=== PATIENT | female | born 2000 | race Caucasian/White ===

== ENCOUNTER 2020-07-02 02:43 | Inpatient (IN) | payer OTHER ==
--- NOTE | 2020-07-02 04:25 | PCM.SN.2 ---
- Free Text/Narrative Note: Evaluation Note OB provider: asset protection officer/marlyn Bronson HPI: Ines Cardona is a 19-year-old at 42 weeks 4 days by certain LMP of 09/08/2019 consistent with a 42-week ultrasound that was done on 06/29/2020 who presents complaining of possible labor. She reports that she has been having intermittent contractions throughout the day on 07/01/2020 with an increased number of contractions in the afternoon. She reports that the contractions were about every 10 minutes starting at around 4 PM with the contractions lasting for about 2 to 3 minutes. She reports that she has been having some bloody show but denies any leaking of fluid. She has been having good movement. She feels that with the bloody show she is in active labor. She has not had any cervical examinations to determine cervical dilation. Her care with her blasting clay miner has been uncomplicated per her report. No formal testing has been done during this . Patient did have labs drawn when she was seen on labor and delivery on 06/29/2020 with all of her labs at that time within normal limits. Her care has been with Lexii Bronson, blasting clay miner/marlyn, and is [complicated by:] * Postterm with estimated gestational age of 42 weeks 4 days by LMP * Limited care with no visits in a medical clinic or evaluations throughout the by a regular medical professional. Patient has had care with her blasting clay miner/marlyn Vitals: [] Physical Examination: General: [No acute distress, alert and oriented] Lungs: [Clear to auscultation bilaterally] Heart: [Regular rate and rhythm] Abdomen: [Soft, nontender, nondistended, gravid], estimated weight 9.5 to 10 pounds by Shravan's [Pelvis:] Declines exam Extremities: 1-2+ pitting edema in bilateral lower extremities to knees, no calf tenderness Cervical exam: Declines exam FHT: 150s, minimal variability, [positive] [15x15] accelerations, intermittent variable decelerations with possible late deceleration after contraction at 03:58 Gravity: Irritability with irregular contractions every 16 to 18 minutes Interventions: monitoring Assessment and Plan: Ines Cardona is a 19-year-old at 42 weeks 4 days with possible labor and post term * Postterm -patient with postterm based on poor dating with LMP of 09/08/2019 consistent with a 42-week ultrasound that was done on 06/29/2020 when she was seen on labor and delivery for evaluation that was performed by Dr. Abdi. Patient had presented at that time for evaluation of blood pressures and increased swelling. There is no evidence of preeclampsia or gestational hypertension at that time. Patient presents today with concern for labor. There has been no cervical examinations performed and she has been having irregular contractions throughout the day. Per her report she has been having contractions about every 10 minutes since around 4 PM on 07/01/2020. She had been having irregular contractions prior to that. She reports that she is having some bloody show. She declined exam by myself on presentation. * Large for gestational age infant -patient had biophysical profile performed at her visit on 06/29/2020 with an estimated weight of 4582 g (10 pounds 2 ounces) which is greater than the 95th percentile for an at the 42nd week of gestation. On Shravan evaluation today the infant was 9.5 to 10 pounds by my evaluation. * Nonreactive NST on monitoring with a category 2 heart rate tracing with variable decelerations and questionable late decelerations as well as minimal variability for the heart rate * Patient was counseled on the risks of postterm including increased risk of maternal complications such as arrest of dilation, arrest of descent, fourth degree laceration with delivery, shoulder dystocia and increased risk for section. Discussed that there is also increased risk of stillbirth at 42 weeks compared to 41 weeks gestational age. There is also increased risk of complications with need for NICU care for the and increased risk for meconium aspiration. Recommend for evaluation of labor with serial cervical exams. Patient declines cervical exams at this time. Recommend for patient to undergo induction of labor and evaluation for labor and she declines at this time. Patient would like to have additional monitoring throughout the morning to see if there is any progression of her labor. I discussed with the patient that there is no way to determine labor without performing serial cervical examinations. Patient states understanding and continues to decline cervical examinations. * We will keep patient for monitoring throughout the morning and would recommend for biophysical profile prior to discharge for evaluation of wellbeing if patient requests discharge and declines being kept in the hospital for delivery of the . I would not recommend patient leave the hospital at this time and would strongly recommend for patient to deliver baby at this time. It would not be my medical recommendation for continuing with the at this time due to the increased morbidity and mortality for both the mother and the including the increased risks for stillbirth and other medical complications for the mother. * We will keep patient from monitoring throughout the morning and her care will be transferred to Dr. Hanks who will be taking over later this morning. Ari Ny MD 4:31 AM 07/02/2020
[2020-07-02] MEDS ORDERED: Lactated Ringers 1,000 ML IV ONE (05:14)
[2020-07-02] MEDS ORDERED: Sodium Chloride 0.9% 10 ML Syringe FLUSH PRN ×2 (05:16→07:23)
--- NOTE | 2020-07-02 06:31 | PCM.PNLD ---
Labor Progress Note - VS & Meds Active Medications: Current Medications Sodium Chloride (Sodium Chloride 0.9% 10 Ml Syringe) 10 ml FLUSH ASDIRECTED PRN PRN Reason: Keep Vein Open Discontinued Medications Lactated Ringer's (Ringers, Lactated) 1,000 mls @ 999 mls/hr IV .BOLUS ONE Stop: 07/02/20 06:14 - Uterine Contractions Uterine Monitoring Mode: External [place] Contraction Frequency (min): irritability. q2-5 Contraction Intensity: Moderate to Strong Uterine Resting Tone: Soft - Monitoring Strip Review: Category II (reassuring currently but) - Vaginal Exam Vaginal Exam Comment: Discussed in detail that I would like at least one cervical check now because the approach to monitoring is influenced by and understanding of proximity to delivery. Patient, support person and voice understanding and refuse exam. - Labor Progress (Free Text) Labor Progress: 19 year old with painful contractions at 42w4. Presumed in labor however has not had a cervical check and on leopolds head does not feel engaged. Had been planning home delivery but now would like hospital delivery however is clear that does not want any interventions. Long conversation about expectations and hospital delivery. Discussed with patient that I will not force her to do anything. Discussed that hospital delivery in and of it self is no guarantee of positive outcomes and that we can only help contribute to positive outcomes if we are allowed to recommend and proceed with the usual interventions based on monitoring and labor progress. Rediscussed all risks documented by both Dr Abdi on 06.29.20 and earlier this morning by Dr. Ny including but not limited to macrosomia leading to labor complications, , shoulder dystocia and maternal hemorrhage. Patient verbalizes understanding. Asked if any questions or clarifications needed and they decline. Discussed at this point I don't believe I would recommend anything different as monitoring is Category 2 but I would recommend cervical check because assessment of labor progress will depend on knowing at least a baseline exam. Patient states she does not want that. Will continue to monitor and make recommendations.
[2020-07-02] MEDS ORDERED: Nalbuphine 10 MG/1 ML Vial IVPUSH PRN (07:23)
--- NOTE | 2020-07-02 14:42 | PCM.PNLD ---
Labor Progress Note - VS & Meds Vital Signs: Last Vital Signs Temp 37.0 C 07/02/20 07:23 Pulse 89 07/02/20 07:23 Resp 16 07/02/20 07:23 BP 121/69 07/02/20 07:23 Pulse Ox 97 07/02/20 07:23 Active Medications: Current Medications Lactated Ringer's (Ringers, Lactated) 1,000 mls @ 100 mls/hr IV ASDIRECTED TERENCE Nalbuphine HCl (Nalbuphine 10 Mg/1 Ml Vial) 10 mg IVPUSH Q2H PRN PRN Reason: Pain Sodium Chloride (Sodium Chloride 0.9% 10 Ml Syringe) 10 ml FLUSH ASDIRECTED PRN PRN Reason: Keep Vein Open Sodium Chloride (Sodium Chloride 0.9% 10 Ml Syringe) 10 ml FLUSH ASDIRECTED PRN PRN Reason: Keep Vein Open Discontinued Medications Lactated Ringer's (Ringers, Lactated) 1,000 mls @ 999 mls/hr IV .BOLUS ONE Stop: 07/02/20 06:14 Last Admin: 07/02/20 10:41 Dose: 999 mls/hr Documented by: - Uterine Contractions Uterine Monitoring Mode: External [place] Contraction Frequency (min): irritability. q2-5 Contraction Intensity: Moderate to Strong Uterine Resting Tone: Soft - Monitoring Strip Review: Category II (good accelerations, decelerations to 60s with strong contractions.) - Vaginal Exam Vaginal Exam Comment: Discussed in detail that I would like at least one cervical check now because the approach to monitoring is influenced by and understanding of proximity to delivery. Patient, support person and voice understanding and refuse exam. Also would like us to stop offering - Labor Progress (Free Text) Labor Progress: Still refusing cervical exams to cannot assess labor progress. Offered examination. Patient and support persons refuse.
--- NOTE | 2020-07-02 14:45 | PCM.PNLD ---
Labor Progress Note - VS & Meds Vital Signs: Last Vital Signs Temp 37.0 C 07/02/20 07:23 Pulse 89 07/02/20 07:23 Resp 16 07/02/20 07:23 BP 121/69 07/02/20 07:23 Pulse Ox 97 07/02/20 07:23 Active Medications: Current Medications Lactated Ringer's (Ringers, Lactated) 1,000 mls @ 100 mls/hr IV ASDIRECTED TERENCE Nalbuphine HCl (Nalbuphine 10 Mg/1 Ml Vial) 10 mg IVPUSH Q2H PRN PRN Reason: Pain Sodium Chloride (Sodium Chloride 0.9% 10 Ml Syringe) 10 ml FLUSH ASDIRECTED PRN PRN Reason: Keep Vein Open Sodium Chloride (Sodium Chloride 0.9% 10 Ml Syringe) 10 ml FLUSH ASDIRECTED PRN PRN Reason: Keep Vein Open Discontinued Medications Lactated Ringer's (Ringers, Lactated) 1,000 mls @ 999 mls/hr IV .BOLUS ONE Stop: 07/02/20 06:14 Last Admin: 07/02/20 10:41 Dose: 999 mls/hr Documented by: - Uterine Contractions Uterine Monitoring Mode: External [place] Contraction Frequency (min): irritability. q2-5 Contraction Intensity: Moderate to Strong Uterine Resting Tone: Soft - Monitoring Strip Review: Category II (good accelerations, decelerations to 60s with strong contractions.) - Vaginal Exam Vaginal Exam Comment: Discussed in detail that I would like at least one cervical check now because the approach to monitoring is influenced by and understanding of proximity to delivery. Patient, support person and voice understanding and refuse exam. Also would like us to stop offering - Labor Progress (Free Text) Labor Progress: Patient requested patient child care. Татьяна Mohamud president acting as her patient child care. Patient requests that her "nurse midwife/clinical instructor" or Nickolas or herself be allowed to "catch" the baby. Discussed in detail that given delivery planned in hospital we will not be able to recommend that. Again cannot commit assault but discussed that risk significant. Discussed heart rate decelerations with contractions. Again refuses examination Asked to clarify why they are here. They want monitoring but no other intervention at this time. Discussed I will continue to offer as I feel is indicated.
--- NOTE | 2020-07-02 16:41 | PCM.PNLD ---
Labor Progress Note - VS & Meds Vital Signs: Last Vital Signs Temp 37.0 C 07/02/20 07:23 Pulse 89 07/02/20 07:23 Resp 16 07/02/20 07:23 BP 121/69 07/02/20 07:23 Pulse Ox 97 07/02/20 07:23 Active Medications: Current Medications Lactated Ringer's (Ringers, Lactated) 1,000 mls @ 100 mls/hr IV ASDIRECTED TERENCE Nalbuphine HCl (Nalbuphine 10 Mg/1 Ml Vial) 10 mg IVPUSH Q2H PRN PRN Reason: Pain Sodium Chloride (Sodium Chloride 0.9% 10 Ml Syringe) 10 ml FLUSH ASDIRECTED PRN PRN Reason: Keep Vein Open Sodium Chloride (Sodium Chloride 0.9% 10 Ml Syringe) 10 ml FLUSH ASDIRECTED PRN PRN Reason: Keep Vein Open Discontinued Medications Lactated Ringer's (Ringers, Lactated) 1,000 mls @ 999 mls/hr IV .BOLUS ONE Stop: 07/02/20 06:14 Last Admin: 07/02/20 10:41 Dose: 999 mls/hr Documented by: - Uterine Contractions Uterine Monitoring Mode: External [place] Contraction Frequency (min): irritability. q2-5 Contraction Intensity: Moderate to Strong Uterine Resting Tone: Soft - Monitoring Strip Review: Category II (good accelerations, decelerations to 60s with strong contractions.) - Vaginal Exam Vaginal Exam Comment: Discussed in detail that I would like at least one cervical check now because the approach to monitoring is influenced by and understanding of proximity to delivery. Patient, support person and voice understanding and refuse exam. Also would like us to stop offering - Labor Progress (Free Text) Labor Progress: Patient and ppa teacher questioning pitocin and epidural. Discussed this with nurse in general. Considering but getting back in tub. I did go in to ask how they were doing and offer cervical check but they closed the bathroom door and declined to talk to me. Nickolas did check on them and let MAURA Gerber and I know that they decline.
--- NOTE | 2020-07-02 16:54 | PCM.SN.2 ---
- Free Text/Narrative Note: Patient requesting epidural. Discussed with patient, Nickolas and her breaker layer that I do not feel it is safe for her to receive and epidural without assessment of labor progress. Patient and her front end specialist state that she has hindu and moral objections to cervical examination. Discussed that would recommend this and furthermore would not be comfortable with the intervention of epidural without ability to assess cervix. They voice understanding. Patient states "I am refusing any cervical exams". As such discussed with Yohannes who also has talked to risk management and agrees to cervical exam prior to epidural.
[2020-07-02] MEDS: Lactated Ringers 1,000 ML IV SCH (23:56)
[2020-07-03] MEDS ORDERED: Bupivacaine 0.25% 10 ML SDV ONE
--- NOTE | 2020-07-03 00:17 | PCM.PNLD ---
Labor Progress Note - VS & Meds Vital Signs: Last Vital Signs Temp 37.0 C 07/02/20 07:23 Pulse 89 07/02/20 07:23 Resp 16 07/02/20 07:23 BP 121/69 07/02/20 07:23 Pulse Ox 97 07/02/20 07:23 Active Medications: Current Medications Lactated Ringer's (Ringers, Lactated) 1,000 mls @ 100 mls/hr IV ASDIRECTED TERENCE Nalbuphine HCl (Nalbuphine 10 Mg/1 Ml Vial) 10 mg IVPUSH Q2H PRN PRN Reason: Pain Sodium Chloride (Sodium Chloride 0.9% 10 Ml Syringe) 10 ml FLUSH ASDIRECTED PRN PRN Reason: Keep Vein Open Sodium Chloride (Sodium Chloride 0.9% 10 Ml Syringe) 10 ml FLUSH ASDIRECTED PRN PRN Reason: Keep Vein Open Discontinued Medications Lactated Ringer's (Ringers, Lactated) 1,000 mls @ 999 mls/hr IV .BOLUS ONE Stop: 07/02/20 06:14 Last Admin: 07/02/20 10:41 Dose: 999 mls/hr Documented by: - Uterine Contractions Uterine Monitoring Mode: External [place] Contraction Frequency (min): irritability. q2-5 Contraction Intensity: Moderate to Strong Uterine Resting Tone: Soft - Monitoring Strip Review: Category II (good accelerations, decelerations to 60s with strong contractions.) - Vaginal Exam Vaginal Exam Comment: Patient absolutely refuses pelvic exam. Discussed we want to ensure she is safe. To assess cervical change and for rupture of membranes. She in discussion with her "social insurance specialist" and states "I am refusing cervical exam" - Labor Progress (Free Text) Labor Progress: Unknown progress as patient continues to refuse cervical exam. States she understands risks. Desires epidural and states she has a right to pain relief. I discussed that after epidural there can be blood pressure and heart rate issues that would necessitate immediate examination and it will become even more difficult to care for her if she is not willing to undergo examination. Again has "gnosticist reasons for refusal" of pelvic exam. Discussed I am no trying to withhold pain control, however I do not feel the intervention of regional anesthesia is the best method of pain management in someone who is unwilling to agree to examination. Also discussed cannot assess progress of labor without patient allowing any examination.
[2020-07-03] MEDS ORDERED: fentaNYL 100 MCG/2 ML SDV EPIDUR PRN (00:33)
[2020-07-03] MEDS ORDERED: diphenhydrAMINE 50 MG/ML SDV IVPUSH PRN (00:33)
[2020-07-03] MEDS ORDERED: Bupivacaine/fentaNYL/NS 100 ML Bag EPIDUR PRN (00:33)
[2020-07-03] MEDS ORDERED: ePHEDrine 50 MG/ML SDV IVPUSH PRN (00:33)
--- NOTE | 2020-07-03 00:33 | PCM.PREANE ---
Preanesthetic Assessment - Procedure Proposed Procedure: teresa - Anesthesia/Transfusion/Family Hx Anesthesia History: No Prior Anesthesia Family History of Anesthesia Reaction: No Transfusion History: No Prior Transfusion(s) - Review of Systems General: No Symptoms Pulmonary: No Symptoms Cardiovascular: No Symptoms Gastrointestinal: Abdominal Pain (contractions) Neurological: No Symptoms Other: Reports: None - Physical Assessment Vital Signs: Last Vital Signs Temp 98.6 F 07/02/20 07:23 Pulse 89 07/02/20 07:23 Resp 16 07/02/20 07:23 BP 121/69 07/02/20 07:23 Pulse Ox 97 07/02/20 07:23 Height: 5 ft 1 in Weight: 82.1 kg ASA Class: 2 Mental Status: Alert & Oriented x3 Airway Class: Mallampati = 2 Dentition: Reports: Normal Dentition Thyro-Mental Finger Breadths: 3 Mouth Opening Finger Breadths: 3 ROM/Head Extension: Full Lungs: Clear to Auscultation, Normal Respiratory Effort - Lab Values: Laboratory Last Values WBC 13.48 K/mm3 (3.98-10.04) H 07/02/20 10:46 RBC 3.67 M/mm3 (3.98-5.22) L 07/02/20 10:46 Hgb 11.0 gm/dl (11.2-15.7) L 07/02/20 10:46 Hct 33.5 % (34.1-44.9) L 07/02/20 10:46 MCV 91.3 fl (79.4-94.8) 07/02/20 10:46 MCH 30.0 pg (25.6-32.2) 07/02/20 10:46 MCHC 32.8 g/dl (32.2-35.5) 07/02/20 10:46 RDW Std Deviation 44.8 fL (36.4-46.3) 07/02/20 10:46 Plt Count 128 K/mm3 (182-369) L 07/02/20 10:46 MPV 10.6 fl (9.4-12.3) 07/02/20 10:46 Neut % (Auto) 86.0 % (34.0-71.1) H 07/02/20 10:46 Lymph % (Auto) 7.0 % (19.3-51.7) L 07/02/20 10:46 [place] % (Auto) 6.3 % (4.7-12.5) 07/02/20 10:46 Eos % (Auto) 0.2 (0.7-5.8) L 07/02/20 10:46 Baso % (Auto) 0.1 % (0.1-1.2) 07/02/20 10:46 Neut # (Auto) 11.59 K/mm3 (1.56-6.13) H 07/02/20 10:46 Lymph # (Auto) 0.94 K/mm3 (1.18-3.74) L 07/02/20 10:46 [place] # (Auto) 0.85 K/mm3 (0.24-0.36) H 07/02/20 10:46 Eos # (Auto) 0.03 K/mm3 (0.04-0.36) L 07/02/20 10:46 Baso # (Auto) 0.02 K/mm3 (0.01-0.08) 07/02/20 10:46 Manual Slide Review Abnormal smear 07/02/20 10:46 SARS-CoV-2 RNA (АЛЕКСАНДР) Negative (NEGATIVE) 07/02/20 07:30 Blood Type A POSITIVE 07/02/20 10:46 Gel Antibody Screen Negative 07/02/20 10:46 - Allergies Allergies/Adverse Reactions: Allergies Allergy/AdvReac Type Severity Reaction Status Date / Time No Known Allergies Allergy Verified 07/02/20 05:17 - Blood Blood Available: No - Acknowledgements Anesthesia Type Planned: Epidural Pt an Appropriate Candidate for the Planned Anesthesia: Yes Alternatives and Risks of Anesthesia Discussed w Pt/Guardian: Yes Pt/Guardian Understands and Agrees with Anesthesia Plan: Yes PreAnesthesia Questionnaire - Past Health History Medical/Surgical History: Denies Medical/Surgical History Cardiovascular History: Reports: None Respiratory History: Reports: None Gastrointestinal History: Reports: GERD (with preg) [employer] AND [employer] IN[employer] History: Reports: : 1 (42 w 5) Para: 0 Oncologic (Cancer) History: Reports: None - SUBSTANCE USE Tobacco Use Status *Q: Never Tobacco User Tobacco Use Within Last Twelve Months: No Second Hand Smoke Exposure: No Recreational Drug Use History: No - HOME MEDS Home Medications: Home Meds . [No Known Home Meds] 07/02/20 [History] - CURRENT (IN HOUSE) MEDS Current Meds: Current Medications Lactated Ringer's (Ringers, Lactated) 1,000 mls @ 100 mls/hr IV ASDIRECTED TERENCE Last Admin: 07/02/20 23:56 Dose: 999 mls/hr Documented by: Nalbuphine HCl (Nalbuphine 10 Mg/1 Ml Vial) 10 mg IVPUSH Q2H PRN PRN Reason: Pain Sodium Chloride (Sodium Chloride 0.9% 10 Ml Syringe) 10 ml FLUSH ASDIRECTED PRN PRN Reason: Keep Vein Open Sodium Chloride (Sodium Chloride 0.9% 10 Ml Syringe) 10 ml FLUSH ASDIRECTED PRN PRN Reason: Keep Vein Open Discontinued Medications Lactated Ringer's (Ringers, Lactated) 1,000 mls @ 999 mls/hr IV .BOLUS ONE Stop: 07/02/20 06:14 Last Admin: 07/02/20 10:41 Dose: 999 mls/hr Documented by:
--- NOTE | 2020-07-03 00:47 | PCM.SN.2 ---
- Free Text/Narrative Note: Patient allowing examination and requests epidural. 8cm/90/-3 No fluid seen on exam. Will recheck or nurse will recheck after epidural.
[2020-07-03] MEDS: Lactated Ringers 1,000 ML IV SCH (01:00)
[2020-07-03] MEDS ORDERED: Oxytocin/Lactated Ringers 10 UNIT/1,000 ML BAG IV SCH (03:30)
--- NOTE | 2020-07-03 06:31 | PCM.SN.2 ---
- Free Text/Narrative Note: Stage I - Patient presented after intention of home delivery at 42w2. IV fluids and epidural. Progressed to complete with overall reassuring heart tones. Stage II - of viable male. Weight pending. APGARS 8/9 at 0524. Head delivered in controlled manner over intact perineum. Body and shoulders atraumatically. To maternal abdomen. Cord clamped and cut at 2 minutes of life. Cord blood collected. Positive cry. Stage III - of intact placenta. 3vc. Small second degree laceration repaired with 3-0 vicryl. EBL 300.
--- NOTE | 2020-07-03 07:50 | PCM48HPAN ---
Post Anesthesia Note - EVALUATION WITHIN 48HRS OF ANESTHETIC Vital Signs in Normal Range: Yes Patient Participated in Evaluation: Yes Respiratory Function Stable: Yes Airway Patent: Yes Cardiovascular Function Stable: Yes Hydration Status Stable: Yes Pain Control Satisfactory: Yes Nausea and Vomiting Control Satisfactory: Yes Mental Status Recovered: Yes Vital Signs: Last Vital Signs Temp 37.0 C 07/02/20 07:23 Pulse 89 07/02/20 07:23 Resp 16 07/02/20 07:23 BP 121/69 07/02/20 07:23 Pulse Ox 97 07/02/20 07:23
[2020-07-03] MEDS ORDERED: Benzocaine/Menthol 20%-0.5% Spray 56 GM Canister TOP PRN (08:02)
[2020-07-03] MEDS ORDERED: Witch Hazel Medicated Pads 40/Jar TOP PRN (08:02)
[2020-07-03] MEDS ORDERED: Ibuprofen 600 MG Tab PO PRN (08:02)
== END 2020-07-04 07:10 | disposition home or self-care (01) | DRG 807 ==
LOC: JD.OB 02:43 → JD.OBCHECK 02:43 → JD.OB 07:00 → OBSVTOIN 07-03 05:24 → JD.OB 07-03 05:25
PROVIDERS: ADMIT Obstetrics & Gynecology; ATTEND Obstetrics & Gynecology
PROC: 10E0XZZ Delivery of Products of Conception, External Approach (ICD-10-PCS; principal; 2020-07-03)
PROC: 0KQM0ZZ Repair Perineum Muscle, Open Approach (ICD-10-PCS; 2020-07-03)
PROC: 3E0R3BZ Introduction of Anesthetic Agent into Spinal Canal, Percutaneous Approach (ICD-10-PCS; 2020-07-03)
PROC: 00HU33Z Insertion of Infusion Device into Spinal Canal, Percutaneous Approach (ICD-10-PCS; 2020-07-03)
DX: O48.0 Post-term pregnancy (principal); Z37.0 Single live birth; O36.63X0 Maternal care for excessive fetal growth, third trimester, not applicable or unspecified; Z20.822 Contact with and (suspected) exposure to COVID-19; O70.1 Second degree perineal laceration during delivery; Z3A.42 42 weeks gestation of pregnancy
CPT/HCPCS: 01967; 36415; 51701; 59025; 59409; 85025; 86592; 86850; 86900; 86901; A9270-GY; J3010; J3490; J7120; U0002